=== PATIENT | male | born 2000 | race Caucasian/White ===

== ENCOUNTER 2024-06-12 14:25 | Observation (INO) ==
[2024-06-12] MEDS ORDERED: Lorazepam PYXIS KEY PRN ×2 (14:59→16:25)
[2024-06-12] MEDS ORDERED: Ondansetron 4 mg VIAL 2 MG/ML 2 ml VIAL ONE (15:01)
[2024-06-12] MEDS: LORazepam 2 mg VIAL 1 ml IV PUSH ONE ×2 (15:04→20:56)
[2024-06-12] MEDS: Lactated Ringers 1000 ml BAG 1,000 ML IV ONE ×3 (15:04→20:24)
[2024-06-12] MEDS: Ondansetron 4 mg VIAL 2 MG/ML 2 ml VIAL IV ONE (15:04)
[2024-06-12 15:12] LABS: Hematocrit 45.3 % (38-53); Hemoglobin 15.7 g/dL (13.2-16.3); Mean Corpuscular Hemoglobin 33.8 pg (27-33); Mean Corpuscular Hgb Conc 34.7 g/dL (31-36); Mean Corpuscular Volume 97.4 fL (80-97); Red Blood Count 4.65 10^6/uL (4.06-5.63); Red Cell Distribution Width 14.7 % (12-17); White Blood Count 6.5 10^3/uL (3.6-10.2)
[2024-06-12 15:21] LABS: INR 0.97 (0.85-1.14)
[2024-06-12 15:35] LABS: ABS Lymphocytes 0.1 10^3/uL (1.0-4.8); ABS Monocytes 0.5 10^3/uL (0.0-1.1); ABS Neutrophils 5.8 10^3/uL (1.5-7.6); ABS Nucleated RBC 0.01 10^3/ul; Large Platelets Present; Lymphocyte % 2.2 %; Mean Platelet Volume 8.6 fL (7.5-11.2); Nucleated Red Blood Cells % 0.2 %/100WBC (0.0-0.8); Platelet Count 95 10^3/uL (150-450)
[2024-06-12 16:23] LABS: ALT 189 U/L (7-52); Albumin 5.2 g/dL (3.2-5.2); Albumin/Globulin Ratio 1.6 (1-3); Alkaline Phosphatase 89 U/L (35-149); Anion Gap 22 mmol/L (2-16); Blood Urea Nitrogen 16 mg/dL (6-24); CO2 Carbon Dioxide 20 mmol/L (22-32); Calcium 10.3 mg/dL (8.6-10.3); Chloride 91 mmol/L (101-111); Creatinine, Serum 1.15 mg/dL (0.67-1.17); Globulin 3.2 g/dL (2-4); Glucose 93 mg/dL (70-100); Sodium 133 mmol/L (135-145); Total Bilirubin 0.6 mg/dL (0.2-1.0); Total Protein 8.4 g/dL (6.4-8.9); eGFR CKD-EPI 91.1 (>60)
[2024-06-12 17:09] LABS: HIV 4th Generation Nonreactive (Nonreactive)
[2024-06-12 17:14] LABS: Urine Appearance Turbid; Urine Bilirubin Negative (Negative); Urine Blood 3+ (Negative); Urine Color Yellow; Urine Glucose Negative (Negative); Urine Ketones 2+ (Negative); Urine Nitrite Negative (Negative); Urine Protein 2+ (>=100 mg/dL) (Negative); Urine Specific Gravity 1.023 (1.002-1.030); Urine Urobilinogen Negative (Negative); Urine pH 5.5 (5.0-8.0)
[2024-06-12 17:37] LABS: Urine Bacteria Absent /HPF (Absent); Urine Red Blood Cell 1+(3-5/hpf) /HPF (0-Trace); Urine White Blood Cell Trace(0-5/hpf) /HPF (0-Trace)
[2024-06-12 19:05] LABS: Potassium Redraw 4.4 mmol/L (3.5-5.0)
[2024-06-12 19:39] LABS: Folate 9.93 ng/mL (5.90-24.80)
[2024-06-12] MEDS: Multivitamins/Minerals TAB PO SCH (20:23)
[2024-06-13 06:03] LABS: Hepatitis C Antibody Negative (Negative)
[2024-06-13 18:24] LABS: Hematocrit 45.4 % (38-53); Hemoglobin 15.9 g/dL (13.2-16.3); Mean Corpuscular Hemoglobin 34.1 pg (27-33); Mean Corpuscular Hgb Conc 34.9 g/dL (31-36); Mean Corpuscular Volume 97.7 fL (80-97); Red Blood Count 4.65 10^6/uL (4.06-5.63); Red Cell Distribution Width 14.7 % (12-17)
[2024-06-13 18:48] LABS: Albumin 4.6 g/dL (3.2-5.2); Albumin/Globulin Ratio 1.6 (1-3); Calcium 9.6 mg/dL (8.6-10.3); Creatinine, Serum 0.87 mg/dL (0.67-1.17); Globulin 2.9 g/dL (2-4); Potassium 3.5 mmol/L (3.5-5.0); Total Bilirubin 0.9 mg/dL (0.2-1.0); Total Protein 7.5 g/dL (6.4-8.9); eGFR CKD-EPI 123.6 (>60)
[2024-06-13 19:32] LABS: ABS Lymphocytes 0.6 10^3/uL (1.0-4.8); ABS Monocytes 0.9 10^3/uL (0.0-1.1); ABS Neutrophils 4.7 10^3/uL (1.5-7.6); Eosinophil % 0.5 %; Lymphocyte % 10.4 %; Mean Platelet Volume 9.8 fL (7.5-11.2); Platelet Count 94 10^3/uL (150-450); White Blood Count 6.2 10^3/uL (3.6-10.2)
[2024-06-14 08:26] LABS: Hematocrit 45.9 % (38-53); Hemoglobin 16.1 g/dL (13.2-16.3); Mean Corpuscular Hemoglobin 34.2 pg (27-33); Mean Corpuscular Hgb Conc 35.1 g/dL (31-36); Mean Corpuscular Volume 97.3 fL (80-97); Red Blood Count 4.72 10^6/uL (4.06-5.63); Red Cell Distribution Width 14.5 % (12-17); White Blood Count 6.6 10^3/uL (3.6-10.2)
[2024-06-14 08:46] LABS: ABS Basophils 0.1 10^3/uL (0.0-0.1); ABS Eosinophils 0.1 10^3/uL (0.0-0.5); ABS Lymphocytes 0.8 10^3/uL (1.0-4.8); ABS Neutrophils 4.7 10^3/uL (1.5-7.6); Eosinophil % 1.5 %; Giant Platelets Present; Lymphocyte % 11.9 %; Mean Platelet Volume 10.1 fL (7.5-11.2); Platelet Count 103 10^3/uL (150-450)
[2024-06-14 09:14] LABS: Calcium 9.6 mg/dL (8.6-10.3); Creatinine, Serum 0.87 mg/dL (0.67-1.17); Magnesium 1.9 mg/dL (1.9-2.7); Potassium 3.6 mmol/L (3.5-5.0); eGFR CKD-EPI 123.6 (>60)
[2024-06-14] MEDS: NS 0.9% 1000 ml BAG 1,000 ML IV SCH (13:34)
[2024-06-14] MEDS: Nicotine PATCH 14 MG/24 HR PATCH TRANSDERM SCH (15:45)
[2024-06-15 09:56] VITALS: BP 154/116
== END 2024-06-15 12:20 | disposition home or self-care (01) ==
LOC: ED 14:25 → EDHOLD 14:25 → MEDTELE 21:00
PROVIDERS: ADMIT Hospitalist; ATTEND Hospitalist